=== PATIENT | male | born 1995 | race Caucasian/White ===

== ENCOUNTER 2020-09-07 19:50 | Inpatient (IN) | payer SELFPAY ==
[~2020-09-07] VITALS: Ht 162.6 cm; Wt 77.1 kg
[2020-09-07 21:33] LABS: BASOPHILS % 0.4 % (0.0-2.0); HEMATOCRIT. 41.5 % (42.0-52.0); HEMOGLOBIN. 13.9 g/dL (14.0-18.0); LYMPHOCYTES % 26.9 % (20.0-50.0); MEAN CORPUSCULAR HEMOGLOBIN 28.2 pg (28.0-32.0); MEAN CORPUSCULAR VOLUME 84.1 fL (80.0-94.0); MEAN PLATELET VOLUME 8.7 fl (7.4-10.4); NEUTROPHILS % 59.7 % (40.0-76.0); PLATELET 295 x1000/uL (130-400); RED BLOOD CELL COUNT 4.93 mill/uL (4.7-6.1)
[2020-09-07 21:39] LABS: CLARITY URINE CLEAR (CLEAR); COLOR URINE YELLOW (YELLOW); KETONES URINE TRACE (NEGATIVE); LEUKOCYTE ESTERASE URINE NEGATIVE (NEGATIVE); NITRITE URINE NEGATIVE (NEGATIVE); OCCULT BLOOD URINE TRACE (NEGATIVE); PH URINE 5.5 (4.5-8.0); PROTEIN URINE TRACE (NEGATIVE); SPECIFIC GRAVITY URINE 1.033 (1.005-1.030)
[2020-09-07 21:41] LABS: CHLORIDE 102 mEq/L (98-107)
[2020-09-07] MEDS ORDERED: KETOROLAC 30MG/ML VIAL IV STA (23:29)
[2020-09-07] MEDS ORDERED: SODIUM CHLORIDE 0.9% 1,000 ML IV ONE (23:30)
[2020-09-08] MEDS ORDERED: IOHEXOL-300 100 ML BOTTLE ONE (00:58)
[2020-09-08] MEDS ORDERED: PIPERACILLIN/TAZ 3.375G PREMIX 50 ML IV ONE ×2 (01:00→13:00)
[2020-09-08] MEDS ORDERED: SKIN ADHESIVE 0.7 GM EA TOP ONE (06:48)
[2020-09-08] MEDS ORDERED: BUPIVACAINE HCL 0.5% (5MG/ML) 50ML ONE (06:49)
[2020-09-08] MEDS ORDERED: MEPERIDINE HCL/PF 25MG/ML CPJ IV PRN ×2 (07:00)
[2020-09-08] MEDS ORDERED: MORPHINE SULFATE 2 MG/ML CPJ (NOT FOR IM USE) IV PRN (07:00)
[2020-09-08] MEDS ORDERED: SODIUM CHLORIDE 0.9% 1,000 ML IV ONE (07:00)
[2020-09-08] MEDS ORDERED: ROCURONIUM BROMIDE 10MG/ML VIAL 5ML IV ONE (07:10)
[2020-09-08] MEDS ORDERED: FENTANYL CITRATE/PF 50MCG/ML 2ML VIAL ONE ×3 (07:10→08:18)
[2020-09-08] MEDS ORDERED: NEOSTIGMINE METHYLSULFATE 1MG/ML 10 ML VIAL ONE (07:10)
[2020-09-08] MEDS ORDERED: CEFAZOLIN SODIUM 1000MG/VIAL ONE (07:11)
[2020-09-08] MEDS ORDERED: GLYCOPYRROLATE 0.2 MG/ML 2ML VIAL ONE (07:11)
[2020-09-08] MEDS ORDERED: SUCCINYLCHOLINE CHLORIDE 200MG/10ML IV ONE (07:11)
[2020-09-08] MEDS ORDERED: PROPOFOL 200MG/20ML VIAL IV ONE (07:11)
[2020-09-08] MEDS ORDERED: MIDAZOLAM HCL 2 MG/2 ML VIAL ONE (07:11)
[2020-09-08] MEDS ORDERED: METOCLOPRAMIDE HCL 10MG/2ML VIAL ONE (07:11)
[2020-09-08] MEDS ORDERED: SODIUM CHLORIDE 0.9% 10ML VIAL ONE (07:11)
[2020-09-08] MEDS ORDERED: ONDANSETRON HCL 4MG/2ML INJ IV PRN (09:00)
[2020-09-08] MEDS: ONDANSETRON HCL 4MG/2ML INJ IV PRN ×2 (09:18→09:19)
[2020-09-08] MEDS: HYDROMORPHONE HCL/PF 2MG/ML CPJ IV PRN ×2 (09:21→09:54)
[2020-09-08] MEDS ORDERED: DEXT 5%/0.45% NACL KCL 20MEQ/L 1,000 ML IV SCH (10:00)
[2020-09-08 12:00] VITALS: BP 141/89
[2020-09-08 12:47] VITALS: BP 141/89
[2020-09-08] MEDS ORDERED: DIPHENHYDRAMINE 50MG/ML VIAL IV PRN (13:00)
[2020-09-08] MEDS ORDERED: ACETAMINOPHEN 325MG TABLET PO PRN (13:00)
[2020-09-08] MEDS ORDERED: CLONIDINE 0.1MG TABLET PO PRN (13:00)
[2020-09-08] MEDS ORDERED: IPRATROPIUM/ALBUTEROL 0.5-3(2.5)MG/3ML NEB HHN PRN (13:00)
[2020-09-08] MEDS ORDERED: PIPERACILLIN/TAZOBACTAM 3.375 G in DEXT 5% WATER 100 ML IV SCH (14:00)
[2020-09-08] MEDS: MORPHINE SULFATE 2 MG/ML CPJ (NOT FOR IM USE) IV PRN ×2 (14:34→17:56)
[2020-09-08 16:00] VITALS: BP 131/70
[2020-09-08 20:00] VITALS: BP 137/89
[2020-09-08] MEDS: FAMOTIDINE 20MG/2ML VIAL IV SCH (22:24)
[2020-09-08] MEDS: MORPHINE SULFATE 4 MG/ML CPJ (NOT FOR IM USE) IV PRN (22:24)
[2020-09-08] MEDS: DEXT 5%/0.45% NACL KCL 20MEQ/L 1,000 ML IV SCH (23:00)
[2020-09-09] VITALS: BP 129/76
[2020-09-09] MEDS: PIPERACILLIN/TAZOBACTAM 3.375 G in DEXT 5% WATER 100 ML IV SCH ×5 (00:57→23:25)
[2020-09-09 04:00] VITALS: BP 132/82
[2020-09-09] MEDS: MORPHINE SULFATE 4 MG/ML CPJ (NOT FOR IM USE) IV PRN ×4 (05:00→21:01)
[2020-09-09 06:26] LABS: CHLORIDE 100 mEq/L (98-107)
[2020-09-09 06:31] LABS: BASOPHILS % 0.2 % (0.0-2.0); EOSINOPHILS % 0.2 % (0.0-5.0); HEMATOCRIT. 39.3 % (42.0-52.0); HEMOGLOBIN. 13.4 g/dL (14.0-18.0); LYMPHOCYTES % 13.2 % (20.0-50.0); MEAN CORPUSCULAR HEMOGLOBIN 28.3 pg (28.0-32.0); MEAN CORPUSCULAR VOLUME 83.3 fL (80.0-94.0); MEAN PLATELET VOLUME 8.5 fl (7.4-10.4); MONOCYTES % 12.6 % (2.0-8.0); NEUTROPHILS % 73.8 % (40.0-76.0); PLATELET 289 x1000/uL (130-400); RED BLOOD CELL COUNT 4.71 mill/uL (4.7-6.1); RED CELL DISTRIBUTION WIDTH 12.7 % (11.6-14.6)
[2020-09-09 06:34] LABS: HDL CHOLESTEROL 45 mg/dL (40-59); LDL CHOLESTEROL 88 mg/dL (5-100)
[2020-09-09 08:00] VITALS: BP 130/72
[2020-09-09] MEDS: FAMOTIDINE 20MG/2ML VIAL IV SCH ×2 (08:36→20:57)
[2020-09-09] MEDS: DEXT 5%/0.45% NACL KCL 20MEQ/L 1,000 ML IV SCH ×2 (08:36→17:24)
[2020-09-09 12:00] VITALS: BP 134/80
[2020-09-09] MEDS ORDERED: ACETAMINOPHEN 650MG SUPP PR PRN (12:15)
[2020-09-09 16:00] VITALS: BP 128/80
[2020-09-09 20:00] VITALS: BP 125/78
[2020-09-10] VITALS: BP 126/75
[2020-09-10 04:00] VITALS: BP 124/79
[2020-09-10] MEDS: PIPERACILLIN/TAZOBACTAM 3.375 G in DEXT 5% WATER 100 ML IV SCH ×3 (06:05→17:47)
[2020-09-10] MEDS: DEXT 5%/0.45% NACL KCL 20MEQ/L 1,000 ML IV SCH ×2 (06:05→15:04)
[2020-09-10] MEDS: MORPHINE SULFATE 4 MG/ML CPJ (NOT FOR IM USE) IV PRN ×3 (06:06→17:03)
[2020-09-10 08:00] VITALS: BP 130/87
[2020-09-10] MEDS: FAMOTIDINE 20MG/2ML VIAL IV SCH ×2 (09:01→20:48)
[2020-09-10 12:00] VITALS: BP 120/74
[2020-09-10 16:00] VITALS: BP 128/85
[2020-09-10 20:00] VITALS: BP 119/69
[2020-09-10] MEDS: MORPHINE SULFATE 2 MG/ML CPJ (NOT FOR IM USE) IV PRN (20:20)
[2020-09-11] VITALS: BP 117/71
[2020-09-11] MEDS: PIPERACILLIN/TAZOBACTAM 3.375 G in DEXT 5% WATER 100 ML IV SCH ×4 (00:37→17:23)
[2020-09-11] MEDS: DEXT 5%/0.45% NACL KCL 20MEQ/L 1,000 ML IV SCH ×3 (00:38→21:14)
[2020-09-11 04:00] VITALS: BP 116/78
[2020-09-11] MEDS: MORPHINE SULFATE 2 MG/ML CPJ (NOT FOR IM USE) IV PRN ×2 (04:35→09:44)
[2020-09-11 06:08] LABS: BASOPHILS % 0.6 % (0.0-2.0); EOSINOPHILS % 3.2 % (0.0-5.0); HEMATOCRIT. 37.8 % (42.0-52.0); HEMOGLOBIN. 12.7 g/dL (14.0-18.0); MEAN CORPUSCULAR HEMOGLOBIN 28.7 pg (28.0-32.0); MEAN CORPUSCULAR VOLUME 85.4 fL (80.0-94.0); MEAN PLATELET VOLUME 8.1 fl (7.4-10.4); NEUTROPHILS % 68.2 % (40.0-76.0); PLATELET 346 x1000/uL (130-400); RED BLOOD CELL COUNT 4.43 mill/uL (4.7-6.1); RED CELL DISTRIBUTION WIDTH 13.2 % (11.6-14.6)
[2020-09-11 06:19] LABS: CHLORIDE 101 mEq/L (98-107)
[2020-09-11 08:00] VITALS: BP 125/82
[2020-09-11] MEDS: FAMOTIDINE 20MG/2ML VIAL IV SCH ×2 (08:43→21:14)
[2020-09-11 12:00] VITALS: BP 124/78
[2020-09-11] MEDS: MORPHINE SULFATE 4 MG/ML CPJ (NOT FOR IM USE) IV PRN ×2 (13:57→21:15)
[2020-09-11 16:00] VITALS: BP 125/78
[2020-09-11 20:00] VITALS: BP 116/80
[2020-09-12] VITALS: BP 120/70
[2020-09-12] MEDS: PIPERACILLIN/TAZOBACTAM 3.375 G in DEXT 5% WATER 100 ML IV SCH ×5 (00:04→23:08)
[2020-09-12 04:00] VITALS: BP 123/77
[2020-09-12] MEDS: MORPHINE SULFATE 4 MG/ML CPJ (NOT FOR IM USE) IV PRN (05:31)
[2020-09-12] MEDS: DEXT 5%/0.45% NACL KCL 20MEQ/L 1,000 ML IV SCH ×2 (06:40→17:43)
[2020-09-12 08:00] VITALS: BP_SYST 112; BP_SYST 131; BP_DIAS 68; BP_DIAS 71
[2020-09-12] MEDS: FAMOTIDINE 20MG/2ML VIAL IV SCH ×2 (08:32→20:52)
[2020-09-12 09:03] LABS: BASOPHILS % 0.7 % (0.0-2.0); EOSINOPHILS % 4.8 % (0.0-5.0); HEMATOCRIT. 37.9 % (42.0-52.0); HEMOGLOBIN. 12.6 g/dL (14.0-18.0); LYMPHOCYTES % 26.9 % (20.0-50.0); MEAN CORPUSCULAR HEMOGLOBIN 28.3 pg (28.0-32.0); MEAN CORPUSCULAR VOLUME 84.9 fL (80.0-94.0); MEAN PLATELET VOLUME 7.7 fl (7.4-10.4); MONOCYTES % 10.6 % (2.0-8.0); PLATELET 405 x1000/uL (130-400); RED BLOOD CELL COUNT 4.46 mill/uL (4.7-6.1); RED CELL DISTRIBUTION WIDTH 13.2 % (11.6-14.6)
[2020-09-12 09:16] LABS: CHLORIDE 102 mEq/L (98-107)
[2020-09-12 12:00] VITALS: BP 126/80
[2020-09-12 16:00] VITALS: BP 128/69
[2020-09-12 20:00] VITALS: BP 116/72
[2020-09-13] VITALS: BP 122/67
[2020-09-13 04:00] VITALS: BP 112/69
[2020-09-13] MEDS: DEXT 5%/0.45% NACL KCL 20MEQ/L 1,000 ML IV SCH ×3 (04:41→18:35)
[2020-09-13] MEDS: PIPERACILLIN/TAZOBACTAM 3.375 G in DEXT 5% WATER 100 ML IV SCH ×2 (05:49→13:00)
[2020-09-13 06:43] LABS: BASOPHILS % 0.7 % (0.0-2.0); HEMATOCRIT. 36.9 % (42.0-52.0); HEMOGLOBIN. 12.3 g/dL (14.0-18.0); LYMPHOCYTES % 25.1 % (20.0-50.0); MEAN CORPUSCULAR HEMOGLOBIN 28.2 pg (28.0-32.0); MEAN CORPUSCULAR VOLUME 84.8 fL (80.0-94.0); MEAN PLATELET VOLUME 7.6 fl (7.4-10.4); MONOCYTES % 10.3 % (2.0-8.0); NEUTROPHILS % 57.9 % (40.0-76.0); PLATELET 437 x1000/uL (130-400); RED BLOOD CELL COUNT 4.35 mill/uL (4.7-6.1); RED CELL DISTRIBUTION WIDTH 13.2 % (11.6-14.6)
[2020-09-13 06:59] LABS: CHLORIDE 103 mEq/L (98-107)
[2020-09-13 08:00] VITALS: BP 113/69
[2020-09-13] MEDS: FAMOTIDINE 20MG/2ML VIAL IV SCH ×2 (08:13→22:30)
[2020-09-13 12:00] VITALS: BP 113/73
[2020-09-13 16:00] VITALS: BP 119/83
[2020-09-13 20:00] VITALS: BP 119/63
[2020-09-14] VITALS: BP 112/61
[2020-09-14 04:00] VITALS: BP 105/52
[2020-09-14] MEDS: DEXT 5%/0.45% NACL KCL 20MEQ/L 1,000 ML IV SCH ×2 (04:54→16:01)
[2020-09-14 06:26] LABS: BASOPHILS % 0.7 % (0.0-2.0); HEMATOCRIT. 36.7 % (42.0-52.0); HEMOGLOBIN. 12.3 g/dL (14.0-18.0); LYMPHOCYTES % 27.2 % (20.0-50.0); MEAN CORPUSCULAR HEMOGLOBIN 28.3 pg (28.0-32.0); MEAN CORPUSCULAR VOLUME 84.5 fL (80.0-94.0); MEAN PLATELET VOLUME 7.4 fl (7.4-10.4); MONOCYTES % 10.1 % (2.0-8.0); PLATELET 435 x1000/uL (130-400); RED BLOOD CELL COUNT 4.34 mill/uL (4.7-6.1); RED CELL DISTRIBUTION WIDTH 13.1 % (11.6-14.6)
[2020-09-14 06:56] LABS: CHLORIDE 105 mEq/L (98-107)
[2020-09-14 08:00] VITALS: BP 113/68
[2020-09-14] MEDS: FAMOTIDINE 20MG/2ML VIAL IV SCH ×2 (08:41→22:07)
[2020-09-14 12:00] VITALS: BP 115/72
[2020-09-14 16:00] VITALS: BP 114/72
[2020-09-14 20:00] VITALS: BP 111/53
[2020-09-15] VITALS: BP 101/49
[2020-09-15 04:00] VITALS: BP 105/46
[2020-09-15] MEDS: DEXT 5%/0.45% NACL KCL 20MEQ/L 1,000 ML IV SCH (05:46)
[2020-09-15 06:45] LABS: BASOPHILS % 0.6 % (0.0-2.0); EOSINOPHILS % 5.7 % (0.0-5.0); HEMATOCRIT. 37.7 % (42.0-52.0); HEMOGLOBIN. 12.5 g/dL (14.0-18.0); LYMPHOCYTES % 25.5 % (20.0-50.0); MEAN CORPUSCULAR HEMOGLOBIN 28.4 pg (28.0-32.0); MEAN CORPUSCULAR VOLUME 85.5 fL (80.0-94.0); MEAN PLATELET VOLUME 7.4 fl (7.4-10.4); MONOCYTES % 8.6 % (2.0-8.0); NEUTROPHILS % 59.6 % (40.0-76.0); PLATELET 466 x1000/uL (130-400); RED BLOOD CELL COUNT 4.41 mill/uL (4.7-6.1); RED CELL DISTRIBUTION WIDTH 13.3 % (11.6-14.6)
[2020-09-15 06:47] LABS: CHLORIDE 107 mEq/L (98-107)
[2020-09-15 08:00] VITALS: BP 115/65
[2020-09-15] MEDS: FAMOTIDINE 20MG/2ML VIAL IV SCH (08:59)
[2020-09-15 12:00] VITALS: BP 109/69
[2020-09-15] MEDS ORDERED: HYDR-4001 MT (12:42)
[2020-09-15 13:08] VITALS: BP 109/69
== END 2020-09-15 14:25 | disposition home or self-care (01) | DRG 223 ==
LOC: ER 09-08 06:50 → ENRESERV 09-08 07:17 → ER 09-08 12:29 → 6EST 09-08 12:30
PROVIDERS: ADMIT Internal Medicine; ATTEND Internal Medicine
PROC: 0DTJ0ZZ Resection of Appendix, Open Approach (ICD-10-PCS; principal; 2020-09-08)
PROC: 0DJD4ZZ Inspection of Lower Intestinal Tract, Percutaneous Endoscopic Approach (ICD-10-PCS; 2020-09-08)
DX: K35.32 Acute appendicitis with perforation, localized peritonitis, and gangrene, without abscess (principal); K66.0 Peritoneal adhesions (postprocedural) (postinfection); Z53.31 Laparoscopic surgical procedure converted to open procedure; Z20.828 Contact with and (suspected) exposure to other viral communicable diseases
CPT/HCPCS: 36415; 73706; 74177; 80048; 80053; 80061; 81003; 84443; 85025; 86850; 86900; 87426; 88304; 93005; 93970; 99285; J0330; J0690; J1170; J1885; J2175; J2250; J2270; J2405; J2543; J2704; J2710; J2765; J3010; J3490; J7030; J7060; Q9967